=== PATIENT | male | born 1965 | race Caucasian/White ===

== ENCOUNTER 2019-12-09 09:25 | Inpatient (IN) | payer OTHER ==
[2019-12-09 10:36] LABS: CHLORIDE,CL 98 mEq/L (98-106); SODIUM,NA 134 mEq/L (136-145)
--- NOTE | 2019-12-09 11:37 | EDM.PDOC ---
ED HPI GENERAL MEDICAL PROBLEM - General Chief Complaint: Respiratory Problem Stated Complaint: short of breath Time Seen by Provider: 12/09/19 10:17 Source of Information: Reports: Patient, RN History Limitations: Reports: No Limitations - History of Present Illness INITIAL COMMENTS - FREE TEXT/NARRATIVE: States that he was exposed to COVID positive pt last week. he felt to have a cold and then Tuesday and Tuesday was worse with URI symptoms. Tuesday he lost his sense of smell and started to have increase cough and SOB. This morning he felt more SOB and coughing worse. Has not been able to lie down all night as he feels that he can't catch his breathe then. O2 sats are 89% on room air and with O2 it does go up to the mid 90's. He has dry cough. No fever that he is aware of. No other symptoms noted. Onset: Gradual Onset Date: 12/07/19 Location: Reports: Chest, Back Associated Symptoms: Reports: No Other Symptoms. Denies: Confusion - Related Data Allergies Allergy/AdvReac Type Severity Reaction Status Date / Time No Known Allergies Allergy Verified 12/09/19 09:44 Home Meds: Home Meds Levothyroxine 175 mcg PO ACBREAKFAST 12/09/19 [History] Meloxicam [Mobic] 15 mg PO DAILY 12/09/19 [History] Rosuvastatin [Crestor] 10 mg PO DAILY 12/09/19 [History] Valsartan/Hydrochlorothiazide [Valsartan-Hctz 80-12.5 mg Tab] 1 each PO DAILY 12/09/19 [History] Past Medical History Cardiovascular History: Reports: High Cholesterol, Hypertension Musculoskeletal History: Reports: Other (See Below) Other Musculoskeletal History: on mobic for an ankle injury Endocrine/Metabolic History: Reports: Hypoparathyroidism - Infectious Disease History Infectious Disease History: Reports: Novel Coronavirus - Past Surgical History Cardiovascular Surgical History: Reports: None Social & Family History - Tobacco Use Smoking Status *Q: Current Every Day Smoker Years of Tobacco use: 40 Packs/Tins Daily: 0.5 - Living Situation & Occupation Living situation: Reports: , with Family Occupation: Employed ED ROS GENERAL - Review of Systems Review Of Systems: See Below Constitutional: Reports: Fever, Weakness. Denies: Chills HEENT: Reports: No Symptoms Respiratory: Reports: Shortness of Breath, Cough. Denies: Wheezing, Sputum Cardiovascular: Denies: Chest Pain, Edema GI/Abdominal: Denies: Abdominal Pain : Reports: No Symptoms Musculoskeletal: Reports: Back Pain (I've been sitting up all night and my back hurts.) ED EXAM, GENERAL - Physical Exam Exam: See Below Exam Limited By: No Limitations General Appearance: Alert, WD/WN, Anxious, Mild Distress Ears: Normal External Exam, Normal Canal, Normal TMs Nose: Normal Inspection Throat/Mouth: Normal Inspection, Normal Oropharynx Head: Atraumatic, Normocephalic Neck: Normal Inspection, Supple, Non-Tender Respiratory/Chest: No Respiratory Distress, Other (coarse lung sounds noted worse on the left. No wheezing or rhonchi noted.). No: Rales, Wheezing Cardiovascular: Regular Rate, Rhythm, No Edema GI/Abdominal: Normal Bowel Sounds, Soft Back Exam: Normal Inspection, Paraspinal Tenderness Extremities: Normal Inspection, No Pedal Edema, Normal Capillary Refill Neurological: Alert, Oriented Skin Exam: Warm, Dry, Intact Course - Vital Signs Last Recorded V/S: Last Vital Signs Temp 99.1 F 12/09/19 11:14 Pulse 110 H 12/09/19 11:14 Resp 18 12/09/19 11:14 BP 119/86 12/09/19 11:14 Pulse Ox 94 L 12/09/19 11:14 - Orders/Labs/Meds Orders: Active Orders 24 hr Category Date Time Status Oxygen Therapy, ED [RC] ASDIRECTED Care 12/09/19 10:00 Active CXR [Chest 2V] [CR] Stat Exams 12/09/19 09:51 Taken Labs: Laboratory Tests 12/09/19 12/09/19 12/09/19 Range/Units 09:29 10:05 10:05 WBC 7.7 (5.0-10.0) 10^3/uL RBC 4.97 (4.50-6.00) 10^6/uL Hgb 16.2 (14.0-18.0) g/dL Hct 45.5 (40.0-54.0) % MCV 91.5 (82.0-94.0) fL MCH 32.6 H (27.0-32.0) pg MCHC 35.6 (33.0-38.0) g/dL RDW Coeff of Gerard 11.6 (11.0-15.0) % Plt Count 163 (150-400) 10^3/uL Neut % (Auto) 64.7 (35-85) % Lymph % (Auto) 23.2 (10-55) % Green % (Auto) 11.2 (0-16) % Eos % (Auto) 0.5 (0-5) % Baso % (Auto) 0.4 (0-3) % Neut # (Auto) 4.96 (1.80-7.00) 10^3/uL Lymph # (Auto) 1.78 (1.00-4.80) 10^3/uL Green # (Auto) 0.86 H (0.00-0.80) 10^3/uL Eos # (Auto) 0.04 (0.00-0.45) 10^3/uL Baso # (Auto) 0.03 10^3/uL D-Dimer, Quantitative 0.50 (0.00-0.50) Sodium (136-145) mEq/L Potassium (3.5-5.0) mEq/L Chloride (98-106) mEq/L Carbon Dioxide (21-32) mmol/L BUN (7-18) mg/dL Creatinine (0.7-1.3) mg/dL Est Cr Clr Drug Dosing mL/min Estimated GFR (MDRD) (>=60) mL/min Glucose (75-99) mg/dL Lactic Acid (0.4-2.0) mmol/L Calcium (8.4-10.1) mg/dL Total Bilirubin (0.0-1.0) mg/dL AST (15-37) U/L ALT (12-78) U/L Alkaline Phosphatase (46-116) U/L C-Reactive Protein (0.2-0.8) mg/dL Total Protein (6.4-8.2) g/dL Albumin (3.4-5.0) g/dL SARS CoV-2 RNA Rapid JOEL Positive H (NEGATIVE) 12/09/19 12/09/19 Range/Units 10:05 10:05 WBC (5.0-10.0) 10^3/uL RBC (4.50-6.00) 10^6/uL Hgb (14.0-18.0) g/dL Hct (40.0-54.0) % MCV (82.0-94.0) fL MCH (27.0-32.0) pg MCHC (33.0-38.0) g/dL RDW Coeff of Gerard (11.0-15.0) % Plt Count (150-400) 10^3/uL Neut % (Auto) (35-85) % Lymph % (Auto) (10-55) % Green % (Auto) (0-16) % Eos % (Auto) (0-5) % Baso % (Auto) (0-3) % Neut # (Auto) (1.80-7.00) 10^3/uL Lymph # (Auto) (1.00-4.80) 10^3/uL Green # (Auto) (0.00-0.80) 10^3/uL Eos # (Auto) (0.00-0.45) 10^3/uL Baso # (Auto) 10^3/uL D-Dimer, Quantitative (0.00-0.50) Sodium 134 L (136-145) mEq/L Potassium 3.3 L (3.5-5.0) mEq/L Chloride 98 (98-106) mEq/L Carbon Dioxide 24 (21-32) mmol/L BUN 10 (7-18) mg/dL Creatinine 1.0 (0.7-1.3) mg/dL Est Cr Clr Drug Dosing 95.90 mL/min Estimated GFR (MDRD) > 60 (>=60) mL/min Glucose 117 H (75-99) mg/dL Lactic Acid 1.6 (0.4-2.0) mmol/L Calcium 8.8 (8.4-10.1) mg/dL Total Bilirubin 0.7 (0.0-1.0) mg/dL AST 35 (15-37) U/L ALT 46 (12-78) U/L Alkaline Phosphatase 72 (46-116) U/L C-Reactive Protein 2.6 H (0.2-0.8) mg/dL Total Protein 7.6 (6.4-8.2) g/dL Albumin 3.6 (3.4-5.0) g/dL SARS CoV-2 RNA Rapid JOEL (NEGATIVE) - Re-Assessments/Exams Free Text/Narrative Re-Assessment/Exam: 12/09/19 11:30 Called [facility] call and discussed case with Dr. Farias president ergonomic consulting and he feels that he would be able to stay here and get Remdisavir and dexamethasone here. Will start lovenox 40 IM BID and incentive spirometry. He recommended Tessalon Pearles for the cough. Will repeat labs and CXR in the AM and if he changes then would be a candidate to transfer at that time. Pt informed of this and is in agreement of the plan. Dr. Charles is notified of admission and is in agreement of the plan. Departure - Departure Time of Disposition: 11:54 Disposition: Admitted As Inpatient 64 Condition: Fair Clinical Impression: COVID-19, Hypoxemia - Discharge Information *PRESCRIPTION DRUG MONITORING PROGRAM REVIEWED*: Not Applicable *COPY OF PRESCRIPTION DRUG MONITORING REPORT IN PATIENT MAR: Not Applicable Referrals: Martina Morrow PA-C [Primary Care Provider] - Sepsis Event Note (ED) - Evaluation Sepsis Screening Result: No Definite Risk - Focused Exam Vital Signs: Vital Signs Temp Pulse Resp BP BP Pulse Ox 12/09/19 11:14 99.1 F 110 H 18 119/86 94 L 12/09/19 10:49 99.1 F 110 H 20 138/93 H 92 L 12/09/19 10:31 99.0 F 110 H 20 124/93 H 92 L 12/09/19 10:15 93 L 12/09/19 10:05 91 L 12/09/19 10:00 99.3 F 110 H 20 138/93 H 89 L 12/09/19 09:25 98.9 F 102 H 16 120/70 93 L - Problem List & Annotations (1) COVID-19 SNOMED Code(s): 094788632 Code(s): U07.1 - COVID-19 Status: Acute Priority: High Current Visit: Yes (2) Hypoxemia SNOMED Code(s): 572041874 Code(s): R09.02 - HYPOXEMIA Status: Acute Priority: High Current Visit: Yes - Problem List Review Problem List Initiated/Reviewed/Updated: Yes - My Orders Last 24 Hours: My Active Orders 12/09/19 09:51 CXR [Chest 2V] [CR] Stat 12/09/19 10:00 Oxygen Therapy, ED [RC] ASDIRECTED - Assessment/Plan Admission H&P: Please use this note as an admission H&P Last 24 Hours: My Active Orders 12/09/19 09:51 CXR [Chest 2V] [CR] Stat 12/09/19 10:00 Oxygen Therapy, ED [RC] ASDIRECTED
[2019-12-09] MEDS ORDERED: Non-Formulary Medication 1 Each (Rosuvastatin [Crestor] 10 MG) PO SCH (12:29)
[2019-12-09] MEDS ORDERED: Sodium Chloride 0.9% 10 ML Syringe FLUSH PRN (12:29)
[2019-12-09] MEDS ORDERED: Acetaminophen/HYDROcodone 325-5 MG Tab PO PRN (12:44)
[2019-12-09] MEDS ORDERED: Sodium Chloride 0.9% 250 ML ONE (13:32)
[2019-12-09] MEDS: Enoxaparin 40 MG/0.4 ML Syringe SUBCUT SCH ×2 (13:33→19:17)
[2019-12-09] MEDS: Dexamethasone 4 MG Tab PO SCH (13:33)
[2019-12-09] MEDS: Acetaminophen 325 MG Tab PO PRN ×2 (13:44→17:56)
[2019-12-09] MEDS: Simvastatin 40 MG Tab PO SCH (19:19)
[2019-12-10] MEDS: Acetaminophen 325 MG Tab PO PRN ×2 (00:27→19:57)
[2019-12-10] MEDS ORDERED: Non-Formulary Medication 1 Each (Levothyroxine [Levothyroxine] 175 MCG) PO SCH (07:00)
[2019-12-10] MEDS: Levothyroxine 125 MCG Tab PO SCH (07:35)
[2019-12-10] MEDS: Levothyroxine 50 MCG Tab PO SCH (07:35)
[2019-12-10] MEDS: Dexamethasone 4 MG Tab PO SCH (07:35)
[2019-12-10] MEDS: Enoxaparin 40 MG/0.4 ML Syringe SUBCUT SCH ×2 (07:36→19:43)
[2019-12-10] MEDS: Hydrochlorothiazide 12.5 MG Cap PO SCH (07:36)
[2019-12-10] MEDS: Losartan 25 MG Tab PO SCH (07:36)
[2019-12-10 08:20] LABS: CHLORIDE,CL 101 mEq/L (98-106); SODIUM,NA 133 mEq/L (136-145)
--- NOTE | 2019-12-10 09:12 | PCM.PN ---
- General Info Date of Service: 12/10/19 Admission Dx/Problem (Free Text): COVID 19 Subjective Update: José Luis states he was exposed to COVID early last week and started having symptoms on Tuesday. Admits on Tuesday he had lost his sense of taste and smell. Started to having some shortness of breath and was concerned of COVID. Was evaluated in ED and found to be positive with hypoxia. Was admitted to hospital for oxygen therapy and close monitoring. Martina Morrow, strike planning applications provider, admitted patient and did discuss with hospitalist at [facility] in regards to proper care and treatment. José Luis states he is feeling better today as compared to yesterday. Roughly 7 days since exposure. States he has always slept with CPAP and questions if this could be available to him. Admits today the shortness of breath has improved as compared to yesterday. Continues to not feel that well. States he has been tr justo to stay hydrated with oral intake. Denies any other concerns today. Functional Status: Reports: Pain Controlled, Tolerating Diet, Incentive Spirometry. Denies: New Symptoms - Review of Systems General: Reports: Fatigue. Denies: Fever HEENT: Reports: Headaches. Denies: Sore Throat Pulmonary: Reports: Shortness of Breath (slightly improved today), Cough. Denies: Wheezing Cardiovascular: Denies: Chest Pain, Palpitations Gastrointestinal: Denies: Abdominal Pain, Nausea Musculoskeletal: Reports: Other (myalgias) Neurological: Reports: Headache - Patient Data Vitals - Most Recent: Last Vital Signs Temp 98.4 F 12/10/19 07:58 Pulse 72 12/10/19 07:58 Resp 20 12/10/19 07:58 BP 124/81 12/10/19 07:58 Pulse Ox 93 L 12/10/19 07:58 Weight - Most Recent: 281 lb I&O - Last 24 Hours: Intake & Output 12/09/19 12/10/19 12/10/19 22:59 06:59 14:59 Intake Total 2039 900 Output Total 2049 1000 Balance -10 -100 Lab Results Last 24 Hours: Laboratory Results - last 24 hr 12/09/19 12/09/19 12/09/19 Range/Units 09:29 10:05 10:05 WBC 7.7 (5.0-10.0) 10^3/uL RBC 4.97 (4.50-6.00) 10^6/uL Hgb 16.2 (14.0-18.0) g/dL Hct 45.5 (40.0-54.0) % MCV 91.5 (82.0-94.0) fL MCH 32.6 H (27.0-32.0) pg MCHC 35.6 (33.0-38.0) g/dL RDW Coeff of Gerard 11.6 (11.0-15.0) % Plt Count 163 (150-400) 10^3/uL Neut % (Auto) 64.7 (35-85) % Lymph % (Auto) 23.2 (10-55) % Mccone % (Auto) 11.2 (0-16) % Eos % (Auto) 0.5 (0-5) % Baso % (Auto) 0.4 (0-3) % Neut # (Auto) 4.96 (1.80-7.00) 10^3/uL Lymph # (Auto) 1.78 (1.00-4.80) 10^3/uL Mccone # (Auto) 0.86 H (0.00-0.80) 10^3/uL Eos # (Auto) 0.04 (0.00-0.45) 10^3/uL Baso # (Auto) 0.03 10^3/uL D-Dimer, Quantitative 0.50 (0.00-0.50) Sodium (136-145) mEq/L Potassium (3.5-5.0) mEq/L Chloride (98-106) mEq/L Carbon Dioxide (21-32) mmol/L BUN (7-18) mg/dL Creatinine (0.7-1.3) mg/dL Est Cr Clr Drug Dosing mL/min Estimated GFR (MDRD) (>=60) mL/min Glucose (75-99) mg/dL Lactic Acid (0.4-2.0) mmol/L Calcium (8.4-10.1) mg/dL Total Bilirubin (0.0-1.0) mg/dL AST (15-37) U/L ALT (12-78) U/L Alkaline Phosphatase (46-116) U/L C-Reactive Protein (0.2-0.8) mg/dL Total Protein (6.4-8.2) g/dL Albumin (3.4-5.0) g/dL SARS CoV-2 RNA Rapid JOEL Positive H (NEGATIVE) 12/09/19 12/09/19 12/10/19 Range/Units 10:05 10: 07:45 WBC 9.1 (5.0-10.0) 10^3/uL RBC 4.62 (4.50-6.00) 10^6/uL Hgb 15.1 (14.0-18.0) g/dL Hct 42.9 (40.0-54.0) % MCV 92.9 (82.0-94.0) fL MCH 32.7 H (27.0-32.0) pg MCHC 35.2 (33.0-38.0) g/dL RDW Coeff of Gerard 11.6 (11.0-15.0) % Plt Count 168 (150-400) 10^3/uL Neut % (Auto) 65.3 (35-85) % Lymph % (Auto) 21.3 (10-55) % Mccone % (Auto) 13.2 (0-16) % Eos % (Auto) 0 (0-5) % Baso % (Auto) 0.2 (0-3) % Neut # (Auto) 5.94 (1.80-7.00) 10^3/uL Lymph # (Auto) 1.94 (1.00-4.80) 10^3/uL Mccone # (Auto) 1.20 H (0.00-0.80) 10^3/uL Eos # (Auto) 0.00 (0.00-0.45) 10^3/uL Baso # (Auto) 0.02 10^3/uL D-Dimer, Quantitative (0.00-0.50) Sodium 134 L (136-145) mEq/L Potassium 3.3 L (3.5-5.0) mEq/L Chloride 98 (98-106) mEq/L Carbon Dioxide 24 (21-32) mmol/L BUN 10 (7-18) mg/dL Creatinine 1.0 (0.7-1.3) mg/dL Est Cr Clr Drug Dosing 95.90 mL/min Estimated GFR (MDRD) > 60 (>=60) mL/min Glucose 117 H (75-99) mg/dL Lactic Acid 1.6 (0.4-2.0) mmol/L Calcium 8.8 (8.4-10.1) mg/dL Total Bilirubin 0.7 (0.0-1.0) mg/dL AST 35 (15-37) U/L ALT 46 (12-78) U/L Alkaline Phosphatase 72 (46-116) U/L C-Reactive Protein 2.6 H (0.2-0.8) mg/dL Total Protein 7.6 (6.4-8.2) g/dL Albumin 3.6 (3.4-5.0) g/dL SARS CoV-2 RNA Rapid JOEL (NEGATIVE) 12/10/19 Range/Units 07:45 WBC (5.0-10.0) 10^3/uL RBC (4.50-6.00) 10^6/uL Hgb (14.0-18.0) g/dL Hct (40.0-54.0) % MCV (82.0-94.0) fL MCH (27.0-32.0) pg MCHC (33.0-38.0) g/dL RDW Coeff of Gerard (11.0-15.0) % Plt Count (150-400) 10^3/uL Neut % (Auto) (35-85) % Lymph % (Auto) (10-55) % Mccone % (Auto) (0-16) % Eos % (Auto) (0-5) % Baso % (Auto) (0-3) % Neut # (Auto) (1.80-7.00) 10^3/uL Lymph # (Auto) (1.00-4.80) 10^3/uL Mccone # (Auto) (0.00-0.80) 10^3/uL Eos # (Auto) (0.00-0.45) 10^3/uL Baso # (Auto) 10^3/uL D-Dimer, Quantitative (0.00-0.50) Sodium 133 L (136-145) mEq/L Potassium 3.6 (3.5-5.0) mEq/L Chloride 101 (98-106) mEq/L Carbon Dioxide 24 (21-32) mmol/L BUN 10 (7-18) mg/dL Creatinine 0.9 (0.7-1.3) mg/dL Est Cr Clr Drug Dosing 106.56 mL/min Estimated GFR (MDRD) > 60 (>=60) mL/min Glucose 141 H (75-99) mg/dL Lactic Acid (0.4-2.0) mmol/L Calcium 8.5 (8.4-10.1) mg/dL Total Bilirubin 0.4 (0.0-1.0) mg/dL AST 26 (15-37) U/L ALT 35 (12-78) U/L Alkaline Phosphatase 53 (46-116) U/L C-Reactive Protein 4.1 H (0.2-0.8) mg/dL Total Protein 6.8 (6.4-8.2) g/dL Albumin 3.1 L (3.4-5.0) g/dL SARS CoV-2 RNA Rapid JOEL (NEGATIVE) Med Orders - Current: Current Medications Acetaminophen (Tylenol) 650 mg PO Q4H PRN PRN Reason: Pain (Mild 1-3)/fever Last Admin: 12/10/19 00:27 Dose: 650 mg Documented by: Hydrocodone Bitart/Acetaminophen (Stovall 325-5 Mg) 2 tab PO Q4H PRN PRN Reason: Pain Dexamethasone (Dexamethasone) 6 mg PO DAILY [facility] Last Admin: 12/10/19 07:35 Dose: 6 mg Documented by: Enoxaparin Sodium (Lovenox) 40 mg SUBCUT BID [facility] Last Admin: 12/10/19 07:36 Dose: 40 mg Documented by: Hydrochlorothiazide (Hydrochlorothiazide) 12.5 mg PO DAILY [facility] Last Admin: 12/10/19 07:36 Dose: 12.5 mg Documented by: Remdesivir 100 mg/ Sodium (Chloride) 100 mls @ 100 mls/hr IV Q24H [facility] Stop: 12/13/19 12:15 Levothyroxine Sodium (Levothyroxine) 125 mcg PO ACBREAKFAST [facility] Last Admin: 12/10/19 07:35 Dose: 125 mcg Documented by: Levothyroxine Sodium (Synthroid) 50 mcg PO ACBREAKFAST [facility] Last Admin: 12/10/19 07:35 Dose: 50 mcg Documented by: Losartan Potassium (Cozaar) 50 mg PO DAILY [facility] Last Admin: 12/10/19 07:36 Dose: 50 mg Documented by: Simvastatin (Zocor) 40 mg PO BEDTIME [facility] Last Admin: 10/04/20 19:19 Dose: 40 mg Documented by: Sodium Chloride (Saline Flush) 10 ml FLUSH ASDIRECTED PRN PRN Reason: Keep Vein Open Discontinued Medications Remdesivir 200 mg/ Sodium (Chloride) 250 mls @ 250 mls/hr IV ONETIME ONE Stop: 12/09/19 12:30 Last Admin: 12/09/19 13:33 Dose: 250 mls/hr Documented by: Sodium Chloride (Normal Saline) Confirm Administered Dose 250 mls @ as directed .ROUTE .STK-MED ONE Stop: 12/09/19 13:33 Last Admin: 12/09/19 14:45 Dose: Not Given Documented by: Non-Formulary Medication (Levothyroxine [Levothyroxine]) 175 mcg PO ACBREAKFAST [facility] Non-Formulary Medication (Rosuvastatin [Crestor]) 10 mg PO DAILY [facility] Last Admin: 12/09/19 14:46 Dose: Not Given Documented by: Non-Formulary Medication (Valsartan/Hydrochlorothiazide [Valsartan-Hctz 80-12.5 Mg Tab]) 1 each PO DAILY [facility] - Exam Quality Assessment: Supplemental Oxygen General: Alert, Oriented, Cooperative, No Acute Distress Neck: Supple, Trachea Midline Lungs: Clear to Auscultation, Rhonchi (right lower quadrant). No: Wheezing GI/Abdominal Exam: Normal Bowel Sounds, Soft, Non-Tender, No Distention Extremities: No Pedal Edema (trace right lower extremity) Skin: Warm, Dry, Intact Psy/Mental Status: Alert, Normal Affect, Normal Mood Sepsis Event Note - Evaluation Sepsis Screening Result: No Definite Risk - Focused Exam Vital Signs: Vital Signs Temp Pulse Resp BP BP BP Pulse Ox 12/10/19 07:58 98.4 F 72 20 117/84 124/81 93 L 12/10/19 07:36 135/79 12/10/19 04:00 98.1 F 81 18 114/62 95 12/10/19 00:00 98.4 F 88 18 98/47 L 93 L - Problem List & Annotations (1) COVID-19 SNOMED Code(s): 535705109 Code(s): U07.1 - COVID-19 Status: Acute Priority: High Current Visit: Yes (2) Hypoxemia SNOMED Code(s): 691381746 Code(s): R09.02 - HYPOXEMIA Status: Acute Priority: High Current Visit: Yes - Problem List Review Problem List Initiated/Reviewed/Updated: Yes - Plan Plan:: José Luis appears to be gradually improving. Reviewed labs from today and have been stable. CRP increased slightly. Chest x-ray reviewed and compared to yesterday which is stable as well. Will continue with IV Remdesivir along with oral dexamethasone. Discussed course of treatment with José Luis and expectations. Will have his drop off his CPAP as well today. Repeat labs in am and chest x- ray.
[2019-12-10] MEDS: REMDESIVIR (EUA) 100 MG in Sodium Chloride 0.9% 100 ML IV SCH (11:59)
[2019-12-10] MEDS: Simvastatin 40 MG Tab PO SCH (19:43)
[2019-12-11] MEDS: Acetaminophen 325 MG Tab PO PRN ×3 (05:09→20:17)
[2019-12-11] MEDS: Levothyroxine 50 MCG Tab PO SCH (06:30)
[2019-12-11] MEDS: Levothyroxine 125 MCG Tab PO SCH (06:30)
[2019-12-11] MEDS: Enoxaparin 40 MG/0.4 ML Syringe SUBCUT SCH ×2 (08:04→19:20)
[2019-12-11] MEDS: Losartan 25 MG Tab PO SCH (08:04)
[2019-12-11] MEDS: Hydrochlorothiazide 12.5 MG Cap PO SCH (08:04)
[2019-12-11] MEDS: Dexamethasone 4 MG Tab PO SCH (08:04)
[2019-12-11 08:30] LABS: CHLORIDE,CL 101 mEq/L (98-106); SODIUM,NA 138 mEq/L (136-145)
[2019-12-11] MEDS: REMDESIVIR (EUA) 100 MG in Sodium Chloride 0.9% 100 ML IV SCH (12:28)
--- NOTE | 2019-12-11 14:44 | PCM.PN ---
- General Info Date of Service: 12/11/19 Admission Dx/Problem (Free Text): COVID 19 Subjective Update: José Luis states he was exposed to COVID early last week and started having symptoms on Tuesday. Admits on Tuesday he had lost his sense of taste and smell. Started to having some shortness of breath and was concerned of COVID. Was evaluated in ED and found to be positive with hypoxia. Was admitted to hospital for oxygen therapy and close monitoring. Martina Morrow, health promotion manager provider, admitted patient and did discuss with hospitalist at [place] in regards to proper care and treatment. José Luis states he is feeling better today as compared to yesterday. Roughly 7 days since exposure. States he has always slept with CPAP and questions if this could be available to him. Admits today the shortness of breath has improved as compared to yesterday. Continues to not feel that well. States he has been tr justo to stay hydrated with oral intake. Denies any other concerns today. - Review of Systems General: Reports: Fever, Weakness, Fatigue, Malaise HEENT: Reports: Sinus Congestion. Denies: Eye Pain Pulmonary: Reports: Shortness of Breath, Cough. Denies: Sputum Cardiovascular: Denies: Chest Pain, Edema, Lightheadedness Gastrointestinal: Reports: Other (loss of taste and smell). Denies: Abdominal Pain, Nausea, Vomiting Genitourinary: Reports: No Symptoms Musculoskeletal: Reports: No Symptoms Skin: Reports: No Symptoms Neurological: Reports: Weakness - Patient Data Vitals - Most Recent: Last Vital Signs Temp 98.7 F 12/11/19 12:00 Pulse 80 12/11/19 12:00 Resp 16 12/11/19 12:00 BP 121/72 12/11/19 12:00 Pulse Ox 92 L 12/11/19 12:00 Weight - Most Recent: 281 lb I&O - Last 24 Hours: Intake & Output 12/10/19 12/11/19 12/11/19 22:59 06:59 14:59 Intake Total 2000 800 1180 Output Total 0062 141 3613 Balance 250 -100 180 Lab Results Last 24 Hours: Laboratory Results - last 24 hr 12/11/19 12/11/19 Range/Units 06:00 08:15 WBC 11.4 H (5.0-10.0) 10^3/uL RBC 4.66 (4.50-6.00) 10^6/uL Hgb 15.2 (14.0-18.0) g/dL Hct 43.5 (40.0-54.0) % MCV 93.3 (82.0-94.0) fL MCH 32.6 H (27.0-32.0) pg MCHC 34.9 (33.0-38.0) g/dL RDW Coeff of Gerard 11.6 (11.0-15.0) % Plt Count 172 (150-400) 10^3/uL Neut % (Auto) 69.2 (35-85) % Lymph % (Auto) 20.9 (10-55) % [place] % (Auto) 9.4 (0-16) % Eos % (Auto) 0.3 (0-5) % Baso % (Auto) 0.2 (0-3) % Neut # (Auto) 7.91 H (1.80-7.00) 10^3/uL Lymph # (Auto) 2.39 (1.00-4.80) 10^3/uL [place] # (Auto) 1.08 H (0.00-0.80) 10^3/uL Eos # (Auto) 0.04 (0.00-0.45) 10^3/uL Baso # (Auto) 0.02 10^3/uL Sodium 138 (136-145) mEq/L Potassium 3.3 L (3.5-5.0) mEq/L Chloride 101 (98-106) mEq/L Carbon Dioxide 27 (21-32) mmol/L BUN 17 D (7-18) mg/dL Creatinine 1.0 (0.7-1.3) mg/dL Est Cr Clr Drug Dosing 95.90 mL/min Estimated GFR (MDRD) > 60 (>=60) mL/min Glucose 122 H (75-99) mg/dL Calcium 8.6 (8.4-10.1) mg/dL Total Bilirubin 0.5 (0.0-1.0) mg/dL AST 22 (15-37) U/L ALT 29 (12-78) U/L Alkaline Phosphatase 48 (46-116) U/L C-Reactive Protein 2.1 H (0.2-0.8) mg/dL Total Protein 6.6 (6.4-8.2) g/dL Albumin 3.0 L (3.4-5.0) g/dL Med Orders - Current: Current Medications Acetaminophen (Tylenol) 650 mg PO Q4H PRN PRN Reason: Pain (Mild 1-3)/fever Last Admin: 12/11/19 05:09 Dose: 650 mg Documented by: Hydrocodone Bitart/Acetaminophen ([place] 325-5 Mg) 2 tab PO Q4H PRN PRN Reason: Pain Dexamethasone (Dexamethasone) 6 mg PO DAILY [facility] Last Admin: 12/11/19 08:04 Dose: 6 mg Documented by: Enoxaparin Sodium (Lovenox) 40 mg SUBCUT BID [facility] Last Admin: 12/11/19 08:04 Dose: 40 mg Documented by: Hydrochlorothiazide (Hydrochlorothiazide) 12.5 mg PO DAILY [facility] Last Admin: 12/11/19 08:04 Dose: 12.5 mg Documented by: Remdesivir 100 mg/ Sodium (Chloride) 100 mls @ 100 mls/hr IV Q24H [facility] Stop: 12/13/19 12:15 Last Admin: 12/11/19 12:28 Dose: 100 mls/hr Documented by: Levothyroxine Sodium (Levothyroxine) 125 mcg PO ACBREAKFAST [facility] Last Admin: 12/11/19 06:30 Dose: 125 mcg Documented by: Levothyroxine Sodium (Synthroid) 50 mcg PO ACBREAKFAST [facility] Last Admin: 12/11/19 06:30 Dose: 50 mcg Documented by: Losartan Potassium (Cozaar) 50 mg PO DAILY [facility] Last Admin: 12/11/19 08:04 Dose: 50 mg Documented by: Simvastatin (Zocor) 40 mg PO BEDTIME [facility] Last Admin: 12/10/19 19:43 Dose: 40 mg Documented by: Sodium Chloride (Saline Flush) 10 ml FLUSH ASDIRECTED PRN PRN Reason: Keep Vein Open Discontinued Medications Remdesivir 200 mg/ Sodium (Chloride) 250 mls @ 250 mls/hr IV ONETIME ONE Stop: 12/09/19 12:30 Last Admin: 12/09/19 13:33 Dose: 250 mls/hr Documented by: Sodium Chloride (Normal Saline) Confirm Administered Dose 250 mls @ as directed .ROUTE .STK-MED ONE Stop: 12/09/19 13:33 Last Admin: 12/09/19 14:45 Dose: Not Given Documented by: Non-Formulary Medication (Levothyroxine [Levothyroxine]) 175 mcg PO ACBREAKFAST [facility] Non-Formulary Medication (Rosuvastatin [Crestor]) 10 mg PO DAILY [facility] Last Admin: 12/09/19 14:46 Dose: Not Given Documented by: Non-Formulary Medication (Valsartan/Hydrochlorothiazide [Valsartan-Hctz 80-12.5 Mg Tab]) 1 each PO DAILY [facility] - Exam General: Alert, Oriented HEENT: Mucous Membr. Moist/[place] Neck: Supple Lungs: Clear to Auscultation, Decreased Breath Sounds Cardiovascular: Regular Rate, Regular Rhythm GI/Abdominal Exam: Normal Bowel Sounds, Soft, Non-Tender Extremities: Normal Inspection, No Pedal Edema Skin: Warm, Dry Neurological: No New Focal Deficit Sepsis Event Note - Evaluation Sepsis Screening Result: No Definite Risk - Focused Exam Vital Signs: Vital Signs Temp Pulse Resp BP BP BP Pulse Ox 12/11/19 12:00 98.7 F 80 16 121/72 92 L 12/11/19 08:04 138/88 12/11/19 08:00 98.5 F 73 16 138/88 95 12/11/19 04:00 99.6 F 79 18 139/91 H 94 L - Problem List & Annotations (1) COVID-19 SNOMED Code(s): 619814976 Code(s): U07.1 - COVID-19 Status: Acute Priority: High Current Visit: Yes - Problem List Review Problem List Initiated/Reviewed/Updated: Yes - Assessment Assessment:: COVID 19 - Plan Plan:: José Luis appears to be gradually improving. Reviewed labs from today and have been stable. CRP increased slightly. Chest x-ray reviewed and compared to yesterday which is stable as well. Will continue with IV Remdesivir along with oral dexamethasone. Discussed course of treatment with José Luis and expectations. Will have his drop off his CPAP as well today. Repeat labs in am and chest x- ray. 12-11-2019 Patient states is feeling better each day. No headache. Has mild sinus congestion. Loss of taste and smell so admits appetite is not as good. Feels generalized malaise. Had 101 temp last evening. Ongoing cough, nonproductive at this time. Oxygen sat has maintained through the night and this am greater than 92% on room air. labs show WBC of 11.4. Potassium 3.3. CRP 2.1. Will continue course of Remdesivir and oral dexamethasone. If continues to improve, possible discharge home in am if remains afebrile through the day and night.
[2019-12-11] MEDS: Simvastatin 40 MG Tab PO SCH (19:20)
[2019-12-11] MEDS ORDERED: Ibuprofen 200 MG Tab PO PRN (21:22)
[2019-12-12] MEDS: Acetaminophen 325 MG Tab PO PRN ×4 (04:06→20:54)
[2019-12-12] MEDS: Levothyroxine 50 MCG Tab PO SCH (06:37)
[2019-12-12] MEDS: Levothyroxine 125 MCG Tab PO SCH (06:37)
[2019-12-12] MEDS: Hydrochlorothiazide 12.5 MG Cap PO SCH (07:50)
[2019-12-12] MEDS: Enoxaparin 40 MG/0.4 ML Syringe SUBCUT SCH ×2 (07:50→20:44)
[2019-12-12] MEDS: Losartan 25 MG Tab PO SCH (07:50)
[2019-12-12] MEDS: Dexamethasone 4 MG Tab PO SCH (07:51)
[2019-12-12 08:54] LABS: CHLORIDE,CL 102 mEq/L (98-106); SODIUM,NA 138 mEq/L (136-145)
--- NOTE | 2019-12-12 09:08 | PCM.PN ---
- General Info Date of Service: 12/12/19 Admission Dx/Problem (Free Text): COVID 19 Functional Status: Reports: Pain Controlled, Tolerating Diet, Ambulating - Review of Systems General: Reports: Fever, Weakness, Fatigue, Malaise HEENT: Reports: Rhinitis. Denies: Ear Pain Pulmonary: Reports: Shortness of Breath, Cough, Sputum Cardiovascular: Denies: Chest Pain, Edema, Lightheadedness Gastrointestinal: Denies: Abdominal Pain, Nausea, Vomiting Genitourinary: Reports: No Symptoms Musculoskeletal: Reports: No Symptoms Skin: Reports: Other (flushed) Neurological: Reports: Weakness - Patient Data Vitals - Most Recent: Last Vital Signs Temp 99.6 F 12/12/19 04:00 Pulse 67 12/12/19 04:00 Resp 20 12/12/19 04:00 BP 135/84 12/12/19 07:50 Pulse Ox 94 L 12/12/19 04:00 Weight - Most Recent: 281 lb I&O - Last 24 Hours: Intake & Output 12/11/19 12/12/19 12/12/19 22:59 06:59 14:59 Intake Total 2900 600 Output Total 1600 650 Balance 1300 -50 Med Orders - Current: Current Medications Acetaminophen (Tylenol) 650 mg PO Q4H PRN PRN Reason: Pain (Mild 1-3)/fever Last Admin: 12/12/19 08:15 Dose: 650 mg Documented by: Hydrocodone Bitart/Acetaminophen ([place] 325-5 Mg) 2 tab PO Q4H PRN PRN Reason: Pain Dexamethasone (Dexamethasone) 6 mg PO DAILY [facility] Last Admin: 12/12/19 07:51 Dose: 6 mg Documented by: Enoxaparin Sodium (Lovenox) 40 mg SUBCUT BID [facility] Last Admin: 12/12/19 07:50 Dose: 40 mg Documented by: Hydrochlorothiazide (Hydrochlorothiazide) 12.5 mg PO DAILY [facility] Last Admin: 12/12/19 07:50 Dose: 12.5 mg Documented by: Remdesivir 100 mg/ Sodium (Chloride) 100 mls @ 100 mls/hr IV Q24H [facility] Stop: 12/13/19 12:15 Last Admin: 12/11/19 12:28 Dose: 100 mls/hr Documented by: Ibuprofen (Motrin) 400 mg PO Q6H PRN PRN Reason: Temperature Last Admin: 12/11/19 21:34 Dose: 400 mg Documented by: Levothyroxine Sodium (Levothyroxine) 125 mcg PO ACBREAKFAST [facility] Last Admin: 12/12/19 06:37 Dose: 125 mcg Documented by: Levothyroxine Sodium (Synthroid) 50 mcg PO ACBREAKFAST [facility] Last Admin: 12/12/19 06:37 Dose: 50 mcg Documented by: Losartan Potassium (Cozaar) 50 mg PO DAILY [facility] Last Admin: 12/12/19 07:50 Dose: 50 mg Documented by: Simvastatin (Zocor) 40 mg PO BEDTIME [facility] Last Admin: 12/11/19 19:20 Dose: 40 mg Documented by: Sodium Chloride (Saline Flush) 10 ml FLUSH ASDIRECTED PRN PRN Reason: Keep Vein Open Discontinued Medications Remdesivir 200 mg/ Sodium (Chloride) 250 mls @ 250 mls/hr IV ONETIME ONE Stop: 12/09/19 12:30 Last Admin: 12/09/19 13:33 Dose: 250 mls/hr Documented by: Sodium Chloride (Normal Saline) Confirm Administered Dose 250 mls @ as directed .ROUTE .STK-MED ONE Stop: 12/09/19 13:33 Last Admin: 12/09/19 14:45 Dose: Not Given Documented by: Non-Formulary Medication (Levothyroxine [Levothyroxine]) 175 mcg PO ACBREAKFAST [facility] Non-Formulary Medication (Rosuvastatin [Crestor]) 10 mg PO DAILY [facility] Last Admin: 12/09/19 14:46 Dose: Not Given Documented by: Non-Formulary Medication (Valsartan/Hydrochlorothiazide [Valsartan-Hctz 80-12.5 Mg Tab]) 1 each PO DAILY [facility] - Exam General: Alert, Oriented HEENT: Mucous Membr. Moist/[place] Neck: Supple Lungs: Decreased Breath Sounds, Rhonchi, Wheezing Cardiovascular: Regular Rate, Regular Rhythm GI/Abdominal Exam: Normal Bowel Sounds, Soft, Non-Tender Extremities: Normal Inspection, No Pedal Edema Skin: Warm, Dry Neurological: No New Focal Deficit Sepsis Event Note - Evaluation Sepsis Screening Result: No Definite Risk - Focused Exam Vital Signs: Vital Signs Temp Temp Pulse Resp BP BP Pulse Ox 12/12/19 07:50 135/84 12/12/19 04:00 99.6 F 67 20 121/86 94 L 12/11/19 22:53 99.6 F 74 20 132/80 94 L 12/11/19 22:34 99.6 F 12/11/19 21:34 101.3 F H 12/11/19 21:30 101.3 F H - Problem List & Annotations (1) COVID-19 SNOMED Code(s): 283238720 Code(s): U07.1 - COVID-19 Status: Acute Priority: High Current Visit: Yes - Problem List Review Problem List Initiated/Reviewed/Updated: Yes - My Orders Last 24 Hours: My Active Orders 12/11/19 21:22 Ibuprofen [Motrin] 400 mg PO Q6H PRN 12/12/19 08:54 Chest 2V [CR] Routine - Assessment Assessment:: COVID 19 - Plan Plan:: José Luis appears to be gradually improving. Reviewed labs from today and have been stable. CRP increased slightly. Chest x-ray reviewed and compared to yesterday which is stable as well. Will continue with IV Remdesivir along with oral dexa methasone. Discussed course of treatment with José Luis and expectations. Will have his drop off his CPAP as well today. Repeat labs in am and chest x-ray. 12-11-2019 Patient states is feeling better each day. No headache. Has mild sinus congestion. Loss of taste and smell so admits appetite is not as good. Feels generalized malaise. Had 101 temp last evening. Ongoing cough, nonproductive a t this time. Oxygen sat has maintained through the night and this am greater than 92% on room air. labs show WBC of 11.4. Potassium 3.3. CRP 2.1. Will continue course of Remdesivir and oral dexamethasone. If continues to improve, possible discharge home in am if remains afebrile through the day and night. 12-12-2019 Patient stable this am, "no worse, no better". Denies headache. Does still note shortness of breath at times. Is eating well despite not being able to taste food. Still running temps greater than 101. Oxygen sats have remained over 90% on room air. Is ambulating around the room and tolerating well. Labs are stable this am. patient agreeable to finish 5 day course of Remdesivir. Continue Dexamethasone. Possible discharge home tomorrow.
[2019-12-12] MEDS: REMDESIVIR (EUA) 100 MG in Sodium Chloride 0.9% 100 ML IV SCH (12:03)
[2019-12-12] MEDS: Simvastatin 40 MG Tab PO SCH (20:44)
[2019-12-13] MEDS: Acetaminophen 325 MG Tab PO PRN ×2 (01:00→20:00)
[2019-12-13] MEDS: Levothyroxine 50 MCG Tab PO SCH (06:40)
[2019-12-13] MEDS: Levothyroxine 125 MCG Tab PO SCH (06:40)
[2019-12-13] MEDS: Dexamethasone 4 MG Tab PO SCH (08:11)
[2019-12-13] MEDS: Losartan 25 MG Tab PO SCH (08:12)
[2019-12-13] MEDS: Enoxaparin 40 MG/0.4 ML Syringe SUBCUT SCH ×2 (08:13→19:49)
[2019-12-13] MEDS: Hydrochlorothiazide 12.5 MG Cap PO SCH (08:13)
[2019-12-13] MEDS ORDERED: Sodium Chloride 0.9% 250 ML IV ONE (11:00)
[2019-12-13] MEDS ORDERED: Sodium Chloride 0.9% 1,000 ML IV ONE (11:20)
[2019-12-13] MEDS ORDERED: EPINEPHrine 1 MG/ML SDV IM ONE ×2 (11:20)
[2019-12-13] MEDS ORDERED: methylPREDNISolone Sodium Succinate 125 MG/2 ML SDV IVPUSH STA (11:20)
[2019-12-13] MEDS ORDERED: diphenhydrAMINE 50 MG/ML SDV IVPUSH ONE (11:20)
[2019-12-13] MEDS ORDERED: Sodium Chloride 0.9% 1,000 ML ONE (11:52)
[2019-12-13] MEDS ORDERED: REMDESIVIR (EUA) 100 MG in Sodium Chloride 0.9% 100 ML IV SCH (14:00)
[2019-12-13] MEDS: REMDESIVIR (EUA) 100 MG in Sodium Chloride 0.9% 100 ML IV SCH (15:32)
[2019-12-13] MEDS: Simvastatin 40 MG Tab PO SCH (19:49)
--- NOTE | 2019-12-13 20:20 | PCM.PN ---
- General Info Date of Service: 12/13/19 Admission Dx/Problem (Free Text): COVID 19 Functional Status: Reports: Pain Controlled, Tolerating Diet, Ambulating - Review of Systems General: Reports: Weakness, Fatigue, Malaise HEENT: Reports: No Symptoms Pulmonary: Reports: Shortness of Breath, Cough Cardiovascular: Denies: Chest Pain, Edema, Lightheadedness Gastrointestinal: Denies: Abdominal Pain, Nausea, Vomiting Genitourinary: Reports: No Symptoms Musculoskeletal: Reports: No Symptoms Skin: Reports: No Symptoms Neurological: Reports: Weakness - Patient Data Vitals - Most Recent: Last Vital Signs Temp 98.2 F 12/13/19 15:33 Pulse 83 12/13/19 15:33 Resp 18 12/13/19 15:33 BP 126/56 L 12/13/19 15:33 Pulse Ox 97 12/13/19 15:33 Weight - Most Recent: 281 lb I&O - Last 24 Hours: Intake & Output 12/13/19 12/13/19 12/13/19 06:59 14:59 22:59 Intake Total 500 900 Output Total 1000 2000 Balance -500 -1100 Lab Results Last 24 Hours: Laboratory Results - last 24 hr 12/13/19 Range/Units 11:12 Blood Type O POSITIVE Med Orders - Current: Current Medications Acetaminophen (Tylenol) 650 mg PO Q4H PRN PRN Reason: Pain (Mild 1-3)/fever Last Admin: 12/13/19 01:00 Dose: 650 mg Documented by: Hydrocodone Bitart/Acetaminophen ([place] 325-5 Mg) 2 tab PO Q4H PRN PRN Reason: Pain Dexamethasone (Dexamethasone) 6 mg PO DAILY [facility] Last Admin: 12/13/19 08:11 Dose: 6 mg Documented by: Enoxaparin Sodium (Lovenox) 40 mg SUBCUT BID [facility] Last Admin: 12/13/19 19:49 Dose: 40 mg Documented by: Hydrochlorothiazide (Hydrochlorothiazide) 12.5 mg PO DAILY [facility] Last Admin: 12/13/19 08:13 Dose: 12.5 mg Documented by: Remdesivir 100 mg/ Sodium (Chloride) 100 mls @ 100 mls/hr IV Q24H [facility] Stop: 12/14/19 07:00 Last Admin: 12/13/19 16:50 Dose: 100 mls/hr Documented by: Ibuprofen (Motrin) 400 mg PO Q6H PRN PRN Reason: Temperature Last Admin: 12/11/19 21:34 Dose: 400 mg Documented by: Levothyroxine Sodium (Levothyroxine) 125 mcg PO ACBREAKFAST [facility] Last Admin: 12/13/19 06:40 Dose: 125 mcg Documented by: Levothyroxine Sodium (Synthroid) 50 mcg PO ACBREAKFAST [facility] Last Admin: 12/13/19 06:40 Dose: 50 mcg Documented by: Losartan Potassium (Cozaar) 50 mg PO DAILY [facility] Last Admin: 12/13/19 08:12 Dose: 50 mg Documented by: Simvastatin (Zocor) 40 mg PO BEDTIME [facility] Last Admin: 12/13/19 19:49 Dose: 40 mg Documented by: Sodium Chloride (Saline Flush) 10 ml FLUSH ASDIRECTED PRN PRN Reason: Keep Vein Open Discontinued Medications Diphenhydramine HCl (Benadryl) 50 mg IVPUSH ONETIME ONE Stop: 12/13/19 11:21 Last Admin: 12/13/19 11:30 Dose: 50 mg Documented by: Epinephrine HCl (Adrenalin) 0.3 mg IM ONETIME ONE Stop: 12/13/19 11:21 Last Admin: 12/13/19 15:01 Dose: 0.3 mg Documented by: Epinephrine HCl (Adrenalin) 0.3 mg IM ONETIME ONE Stop: 12/13/19 11:21 Last Admin: 12/13/19 15:01 Dose: 0.3 mg Documented by: Remdesivir 100 mg/ Sodium (Chloride) 100 mls @ 100 mls/hr IV Q24H [facility] Stop: 12/13/19 12:15 Last Admin: 12/13/19 15:32 Dose: Not Given Documented by: Remdesivir 200 mg/ Sodium (Chloride) 250 mls @ 250 mls/hr IV ONETIME ONE Stop: 12/09/19 12:30 Last Admin: 12/09/19 13:33 Dose: 250 mls/hr Documented by: Sodium Chloride (Normal Saline) Confirm Administered Dose 250 mls @ as directed .ROUTE .STK-MED ONE Stop: 12/09/19 13:33 Last Admin: 12/09/19 14:45 Dose: Not Given Documented by: Sodium Chloride (Normal Saline) 250 mls @ 50 mls/hr IV ONETIME ONE Stop: 12/13/19 15:59 Last Admin: 12/13/19 11:45 Dose: 50 mls/hr Documented by: Sodium Chloride (Normal Saline) Confirm Administered Dose 1,000 mls @ as directed .ROUTE .STK-MED ONE Stop: 12/13/19 11:53 Last Admin: 12/13/19 15:02 Dose: Not Given Documented by: Sodium Chloride (Normal Saline) 1,000 mls @ 999 mls/hr IV .BOLUS ONE Stop: 12/13/19 12:20 Last Admin: 12/13/19 12:00 Dose: 999 mls/hr Documented by: Methylprednisolone Sodium Succinate (Solu-Medrol) 125 mg IVPUSH NOW STA Stop: 12/13/19 11:21 Last Admin: 12/13/19 11:35 Dose: 125 mg Documented by: Non-Formulary Medication (Levothyroxine [Levothyroxine]) 175 mcg PO ACBREAKFAST [facility] Non-Formulary Medication (Rosuvastatin [Crestor]) 10 mg PO DAILY [facility] Last Admin: 12/09/19 14:46 Dose: Not Given Documented by: Non-Formulary Medication (Valsartan/Hydrochlorothiazide [Valsartan-Hctz 80-12.5 Mg Tab]) 1 each PO DAILY [facility] - Exam General: Alert, Oriented HEENT: Mucous Membr. Moist/[place] Neck: Supple Lungs: Decreased Breath Sounds Cardiovascular: Regular Rate, Regular Rhythm GI/Abdominal Exam: Normal Bowel Sounds, Soft, Non-Tender Extremities: Normal Inspection, No Pedal Edema Skin: Warm, Dry Neurological: No New Focal Deficit Sepsis Event Note - Evaluation Sepsis Screening Result: No Definite Risk - Focused Exam Vital Signs: Vital Signs Temp Pulse Resp BP Pulse Ox 12/13/19 15:33 98.2 F 83 18 126/56 L 97 - Problem List & Annotations (1) COVID-19 SNOMED Code(s): 942337032 Code(s): U07.1 - COVID-19 Status: Acute Priority: High Current Visit: Yes (2) Viral pneumonitis SNOMED Code(s): 34589669 Code(s): J12.9 - VIRAL PNEUMONIA, UNSPECIFIED Status: Acute Priority: High Current Visit: Yes - Problem List Review Problem List Initiated/Reviewed/Updated: Yes - Assessment Assessment:: COVID 19 - Plan Plan:: José Luis appears to be gradually improving. Reviewed labs from today and have been stable. CRP increased slightly. Chest x-ray reviewed and compared to yesterday which is stable as well. Will continue with IV Remdesivir along with oral dexamethasone. Discussed course of treatment with José Luis and expectations. Will have his drop off his CPAP as well today. Repeat labs in am and chest x- ray. 12-11-2019 Patient states is feeling better each day. No headache. Has mild sinus congestion. Loss of taste and smell so admits appetite is not as good. Feels generalized malaise. Had 101 temp last evening. Ongoing cough, nonproductive at this time. Oxygen sat has maintained through the night and this am greater than 92% on room air. labs show WBC of 11.4. Potassium 3.3. CRP 2.1. Will continue course of Remdesivir and oral dexamethasone. If continues to improve, possible discharge home in am if remains afebrile through the day and night. 12-12-2019 Patient stable this am, "no worse, no better". Denies headache. Does still note shortness of breath at times. Is eating well despite not being able to taste food. Still running temps greater than 101. Oxygen sats have remained over 90% on room air. Is ambulating around the room and tolerating well. Labs are stable this am. patient agreeable to finish 5 day course of Remdesivir. Continue Dexamethasone. Possible discharge home tomorrow. 12-13-2019 Patient feeling "okay today". Is ambulating about in his room. Does feel short of breath at times with exertion. Oxygen sats have been greater than 95%. Temp 100 last evening, low grade today. WBC is normal today. CRP 1.8. Planned for discharge today after last dose of Remdesivir and dose of Plasma as was feeling better. Plasma was started and within 20 minutes, patient developed tingling sensation and lightheadedness. Skin flushed, red and puffy. Over the course of 30 minutes, Solu Medrol was given, 2 doses of epi and Benadryl. Oxygen was required up to 15 liters to maintain sats greater than 90%. Was able to be weaned down off oxygen. Developed hives but after 30 minutes or so, status did improve. Will monitor overnight, possible discharge home tomorrow if remains stable.
[2019-12-14] MEDS: Levothyroxine 125 MCG Tab PO SCH (06:58)
[2019-12-14] MEDS: Levothyroxine 50 MCG Tab PO SCH (06:58)
[2019-12-14] MEDS: Dexamethasone 4 MG Tab PO SCH (08:01)
[2019-12-14] MEDS: Hydrochlorothiazide 12.5 MG Cap PO SCH (08:02)
[2019-12-14] MEDS: Enoxaparin 40 MG/0.4 ML Syringe SUBCUT SCH (08:03)
[2019-12-14] MEDS: Losartan 25 MG Tab PO SCH (08:19)
[2019-12-14] MEDS ORDERED: REMDESIVIR (EUA) 100 MG in Sodium Chloride 0.9% 100 ML IV ONE ×2 (08:42→09:30)
--- NOTE | 2019-12-14 15:58 | PCM.DCSUM1 ---
Discharge Summary - Hospital Course Free Text/Narrative:: José Luis is a 54 year old who presents to the ER with increasing shortness of breath, cough, weakness and congestion. Appetite has been poor. Lost sense of taste and finding hard to keep hydrated. Tested positive for COVID, symptoms are progressing. In ER, oxygen sat 89% on room air, did improve to mid 90s with oxygen. Labs essentially stable. CRP 4. Chest xray essentially clear in ER. Consult with Jv ann, recommended admission here and start Remdesivir and dexamethasone. Oxygen as needed. Diagnosis: Stroke: No Modified Jared Scale: No Symptoms at All Modified [place] Scale Score: 0 - Discharge Data Discharge Date: 12/14/19 Discharge Disposition: Home, Self-Care 01 Condition: Fair - Referral to Home Health Primary Care Physician: Martina Morrow PA-C - Discharge Diagnosis/Problem(s) (1) COVID-19 SNOMED Code(s): 301351438 ICD Code: U07.1 - COVID-19 Status: Acute Priority: High (2) Viral pneumonitis SNOMED Code(s): 11815562 ICD Code: J12.9 - VIRAL PNEUMONIA, UNSPECIFIED Status: Acute Priority: High - Patient Summary/Data Complications: none Hospital Course: Patient is now feeling better with slow progress over the last 5 days. Was admitted and started on Remdesivir and dexamethasone. Was oxygen dependent on admit but has slowly been weaned off. Appetite is improving. Labs have remained stable. Chest xray did show progression of infiltrates to viral pneumonia. Did receive Remdesivir for 6 days. Plasma was initiated for patient but after 15 minutes, developed skin flushing and increasing shortness of breath. Required 15 liters of oxygen by NR[facility]. Was given epi x2, Solu Medrol and Benadryl. Developed hives but did have slow improvement of symptoms and resolution. Weaned again off oxygen. Did spike high fevers for several days. Weakness is improving. Still has mild cough. Discharge home on supportive cares. - Patient Instructions Diet: Usual Diet as Tolerated Activity: As Tolerated - Discharge Plan *PRESCRIPTION DRUG MONITORING PROGRAM REVIEWED*: Not Applicable *COPY OF PRESCRIPTION DRUG MONITORING REPORT IN PATIENT MAR: Not Applicable Home Medications: Home Meds Levothyroxine 175 mcg PO ACBREAKFAST 12/09/19 [History] Meloxicam [Mobic] 15 mg PO DAILY 12/09/19 [History] Rosuvastatin [Crestor] 10 mg PO DAILY 12/09/19 [History] Valsartan/Hydrochlorothiazide [Valsartan-Hctz 80-12.5 mg Tab] 1 each PO DAILY 12/09/19 [History] Forms: ED Department Discharge Referrals: Martina Morrow PA-C [Primary Care Provider] - (Hospital follow up in 10 days with Martina Morrow ) - Discharge Summary/Plan Comment DC Time >30 min.: No - General Info Date of Service: 12/14/19 Admission Dx/Problem (Free Text: COVID 19 Functional Status: Reports: Pain Controlled, Tolerating Diet, Ambulating - Review of Systems General: Reports: Weakness, Fatigue. Denies: Fever HEENT: Reports: Rhinitis Pulmonary: Reports: Shortness of Breath, Cough Cardiovascular: Denies: Chest Pain, Edema, Lightheadedness Gastrointestinal: Denies: Abdominal Pain, Nausea, Vomiting Genitourinary: Reports: No Symptoms Musculoskeletal: Reports: No Symptoms Skin: Reports: No Symptoms Neurological: Reports: No Symptoms - Patient Data Vitals - Most Recent: Last Vital Signs Temp 98.4 F 12/14/19 08:00 Pulse 73 12/14/19 08:00 Resp 20 12/14/19 08:00 BP 149/84 H 12/14/19 08:19 Pulse Ox 98 12/14/19 08:00 Weight - Most Recent: 281 lb I&O - Last 24 hours: Intake & Output 12/14/19 12/14/19 12/14/19 06:59 14:59 22:59 Intake Total 500 Balance 500 Med Orders - Current: Current Medications Discontinued Medications Acetaminophen (Tylenol) 650 mg PO Q4H PRN PRN Reason: Pain (Mild 1-3)/fever Last Admin: 12/13/19 20:00 Dose: 650 mg Documented by: Hydrocodone Bitart/Acetaminophen ([place] 325-5 Mg) 2 tab PO Q4H PRN PRN Reason: Pain Dexamethasone (Dexamethasone) 6 mg PO DAILY [facility] Last Admin: 12/14/19 08:01 Dose: 6 mg Documented by: Diphenhydramine HCl (Benadryl) 50 mg IVPUSH ONETIME ONE Stop: 12/13/19 11:21 Last Admin: 12/13/19 11:30 Dose: 50 mg Documented by: Enoxaparin Sodium (Lovenox) 40 mg SUBCUT BID [facility] Last Admin: 12/14/19 08:03 Dose: 40 mg Documented by: Epinephrine HCl (Adrenalin) 0.3 mg IM ONETIME ONE Stop: 12/13/19 11:21 Last Admin: 12/13/19 15:01 Dose: 0.3 mg Documented by: Epinephrine HCl (Adrenalin) 0.3 mg IM ONETIME ONE Stop: 12/13/19 11:21 Last Admin: 12/13/19 15:01 Dose: 0.3 mg Documented by: Hydrochlorothiazide (Hydrochlorothiazide) 12.5 mg PO DAILY [facility] Last Admin: 12/14/19 08:02 Dose: 12.5 mg Documented by: Remdesivir 100 mg/ Sodium (Chloride) 100 mls @ 100 mls/hr IV Q24H [facility] Stop: 12/13/19 12:15 Last Admin: 12/13/19 15:32 Dose: Not Given Documented by: Remdesivir 200 mg/ Sodium (Chloride) 250 mls @ 250 mls/hr IV ONETIME ONE Stop: 12/09/19 12:30 Last Admin: 12/09/19 13:33 Dose: 250 mls/hr Documented by: Sodium Chloride (Normal Saline) Confirm Administered Dose 250 mls @ as directed .ROUTE .STK-MED ONE Stop: 12/09/19 13:33 Last Admin: 12/09/19 14:45 Dose: Not Given Documented by: Sodium Chloride (Normal Saline) 250 mls @ 50 mls/hr IV ONETIME ONE Stop: 12/13/19 15:59 Last Admin: 12/13/19 11:45 Dose: 50 mls/hr Documented by: Sodium Chloride (Normal Saline) Confirm Administered Dose 1,000 mls @ as directed .ROUTE .STK-MED ONE Stop: 12/13/19 11:53 Last Admin: 12/13/19 15:02 Dose: Not Given Documented by: Remdesivir 100 mg/ Sodium (Chloride) 100 mls @ 100 mls/hr IV Q24H [facility] Stop: 12/14/19 07:00 Last Admin: 12/13/19 16:50 Dose: 100 mls/hr Documented by: Sodium Chloride (Normal Saline) 1,000 mls @ 999 mls/hr IV .BOLUS ONE Stop: 12/13/19 12:20 Last Admin: 12/13/19 12:00 Dose: 999 mls/hr Documented by: Remdesivir 100 mg/ Sodium (Chloride) 100 mls @ 100 mls/hr IV ONETIME ONE Stop: 12/14/19 09:41 Last Admin: 12/14/19 09:34 Dose: Not Given Documented by: Remdesivir 100 mg/ Sodium (Chloride) 100 mls @ 100 mls/hr IV ONETIME ONE Stop: 12/14/19 10:29 Last Admin: 12/14/19 09:32 Dose: 100 mls/hr Documented by: Ibuprofen (Motrin) 400 mg PO Q6H PRN PRN Reason: Temperature Last Admin: 12/11/19 21:34 Dose: 400 mg Documented by: Levothyroxine Sodium (Levothyroxine) 125 mcg PO ACBREAKFAST [facility] Last Admin: 12/14/19 06:58 Dose: 125 mcg Documented by: Levothyroxine Sodium (Synthroid) 50 mcg PO ACBREAKFAST [facility] Last Admin: 12/14/19 06:58 Dose: 50 mcg Documented by: Losartan Potassium (Cozaar) 50 mg PO DAILY [facility] Last Admin: 12/14/19 08:19 Dose: 50 mg Documented by: Methylprednisolone Sodium Succinate (Solu-Medrol) 125 mg IVPUSH NOW STA Stop: 12/13/19 11:21 Last Admin: 12/13/19 11:35 Dose: 125 mg Documented by: Non-Formulary Medication (Levothyroxine [Levothyroxine]) 175 mcg PO ACBREAKFAST [facility] Non-Formulary Medication (Rosuvastatin [Crestor]) 10 mg PO DAILY [facility] Last Admin: 12/09/19 14:46 Dose: Not Given Documented by: Non-Formulary Medication (Valsartan/Hydrochlorothiazide [Valsartan-Hctz 80-12.5 Mg Tab]) 1 each PO DAILY [facility] Simvastatin (Zocor) 40 mg PO BEDTIME [facility] Last Admin: 12/13/19 19:49 Dose: 40 mg Documented by: Sodium Chloride (Saline Flush) 10 ml FLUSH ASDIRECTED PRN PRN Reason: Keep Vein Open - Exam General: Reports: Alert, Oriented HEENT: Reports: Mucous Membr. Moist/[place] Neck: Reports: Supple Lungs: Reports: Clear to Auscultation, Decreased Breath Sounds Cardiovascular: Reports: Regular Rate, Regular Rhythm GI/Abdominal Exam: Normal Bowel Sounds, Soft, Non-Tender Extremities: Normal Inspection, No Pedal Edema Skin: Reports: Warm, Dry Neurological: Reports: No New Focal Deficit
== END 2019-12-14 11:20 | disposition home or self-care (01) | DRG 177 ==
LOC: CC.ED 09:25 → CC.MS 12:02 → INTOOBSV 12:19 → UNDOADMOB 12:19 → OBSVTOIN 12:19 → UNDODISIN 12-14 11:20
PROVIDERS: ADMIT Physician Assistant Medical; ATTEND Family Medicine
PROC: XW033E5 Introduction of Remdesivir Anti-infective into Peripheral Vein, Percutaneous Approach, New Technology Group 5 (ICD-10-PCS; principal; 2019-12-09)
PROC: 8E0ZXY6 Isolation (ICD-10-PCS; 2019-12-09)
DX: U07.1 COVID-19 (principal); J12.89 Other viral pneumonia; E78.00 Pure hypercholesterolemia, unspecified; I10 Essential (primary) hypertension; F17.200 Nicotine dependence, unspecified, uncomplicated; Z79.890 Hormone replacement therapy; Z79.899 Other long term (current) drug therapy
CPT/HCPCS: 36415; 71045; 71046; 80053; 83605; 85025; 85379; 86140; 86900; 86901; A9270-GY; J0171; J1200; J1650; J2930; J7030; J7050; J8540; U0002

== ENCOUNTER 2021-04-16 11:46 | Emergency (ER) | payer OTHER ==
[2021-04-16] MEDS: Sodium Chloride 0.9% 1,000 ML IV SCH ×2 (12:00→14:14)
[2021-04-16] MEDS ORDERED: Pantoprazole 40 MG Vial IVPUSH ONE ×2 (12:15→14:45)
[2021-04-16 12:16] LABS: CHLORIDE,CL 102 mEq/L (98-106); SODIUM,NA 138 mEq/L (136-145)
[2021-04-16] MEDS ORDERED: Diphtheria,Pertussis(Acell),Tetanus Vaccine 0.5 ML Syringe ONE (12:17)
[2021-04-16] MEDS ORDERED: diphenhydrAMINE 50 MG/ML SDV IVPUSH ONE (14:07)
[2021-04-16] MEDS ORDERED: Ondansetron 4 MG/2 ML SDV IVPUSH ONE (14:30)
[2021-04-16] MEDS ORDERED: methylPREDNISolone Sodium Succinate 125 MG/2 ML SDV IVPUSH ONE (14:30)
[2021-04-16] MEDS ORDERED: Famotidine 20 MG/2 ML SDV IV ONE (14:30)
[2021-04-16] MEDS ORDERED: Famotidine 20 MG/2 ML SDV ONE (14:47)
[2021-04-17] MEDS ORDERED: Pantoprazole 40 MG Vial IVPUSH SCH (12:00)
== END 2021-04-16 15:20 ==
LOC: CC.ED 11:46 → CC.MS 12:51 → UNDOADMOB 12:51 → CC.MS 12:53 → UNDODISOB 15:20
DX: K92.2 Gastrointestinal hemorrhage, unspecified (principal); E78.00 Pure hypercholesterolemia, unspecified; I10 Essential (primary) hypertension; E03.9 Hypothyroidism, unspecified; Z79.899 Other long term (current) drug therapy; Z20.822 Contact with and (suspected) exposure to COVID-19
CPT/HCPCS: 36415; 36430; 80053; 84484; 85025; 86850; 86900; 86901; 86920; 86922; 93005; 96374; 96375; 99285-25; C9113; J1200; J2405; J2930; J3490; J7030; P9016; U0002